=== PATIENT | female | born 1990 | race Hispanic/Latino ===

== ENCOUNTER 2022-03-17 09:41 | Outpatient (CLI) | payer BC, SELFPAY ==
--- NOTE | ~2022-03-17 | US_ITS ---
EXAMINATION: US OB <= 14 weeks fetus DATE: 03/17/2022 10:42 INDICATION: Spotting during first trimester TECHNIQUE: Real-time pelvic ultrasound utilizing both a transvaginal and transabdominal probe was pe rformed. The interpreting radiologist was not present for the study. COMPARISON: None. FINDINGS: The uterus measures 10.9 x 5.3 x 8.5 cm. There is an intrauterine gestational sac. A yolk sac and fe megan pole are identified. The crown rump length measures 2.3 cm, which correlates with an estimated ge stational age of 9 weeks and 0 days. No evident heart motion on cine grayscale or color Doppler imaging consistent with demise. 3.0 x 1.2 x 2.0 cm hypoechoic subchorionic hematoma along the left side of the gestational sac. Normal cervical length of 4.3 cm with trace amount of anechoic flui d measuring 1.5 mm in thickness within the endocervical canal. The right ovary measures 2.7 x 2.0 x 2.3 cm with vascular flow with arterial waveforms on color Doppl er. The left ovary is not visualized. There is no free fluid in the pelvis. IMPRESSION: 1. Intrauterine gestational sac with 2.3 cm pole correspond to gestational age of 9 weeks and 0 days but without discernible heart motion consistent with demise. Reviewed, dictated and finalized at location A. RTISING STRATEGIST IMPRESSION: 1. Intrauterine gestational sac with 2.3 cm pole correspond to gestationa l age of 9 weeks and 0 days but without discernible heart motion consiste nt with demise.
== END 2022-03-17 09:42 | disposition home or self-care (01) ==
LOC: ANHIMG 09:47
PROVIDERS: Visit Provider Obstetrics & Gynecology Gynecology
DX: O26.851 Spotting complicating pregnancy, first trimester (principal); Z3A.09 9 weeks gestation of pregnancy
CPT/HCPCS: 76801

== ENCOUNTER 2022-03-21 18:03 | Observation (INO) | payer BC, SELFPAY ==
[2022-03-21 18:06] VITALS: BP 130/105; PULSE 120; RESP 16; TEMP 36.2; O2SAT 100
[2022-03-21 19:05] LABS: Basophils Percent Auto 0.3 % (0.2-1.2); Eosinophils Absolute Auto 0.1 K/mm3 (0-0.3); Eosinophils Percent Auto 0.8 % (0-4.4); Hematocrit 32.7 % (37.0-47.0); Hemoglobin 10.3 g/dL (12.0-15.0); Immature Granulocyte Absolute 0.06 K/mm3 (0.00-0.031); Immature Granulocyte Percent A 0.5 % (0-0.5); Lymphocytes Absolute Auto 2.37 K/mm3 (0.9-3.2); Lymphocytes Percent Auto 18.9 % (18.3-44.2); Mean Corpuscular HGB Conc 31.5 g/dl (32-36); Mean Corpuscular Hemoglobin 25.9 pg (26-34); Mean Corpuscular Volume 82.2 fl (80-100); Mean Platelet Volume 9.6 fl (7.4-10.4); Monocytes Absolute Auto 0.7 K/mm3 (0.1-0.6); Monocytes Percent Auto 5.3 % (2.6-8.5); Neutrophils Absolute Auto 9.3 K/mm3 (1.3-6.7); Neutrophils Percent Auto 74.2 % (45.5-73.1); Platelet Count Result 325 k/mm3 (150-375); Red Blood Count 3.98 M/mm3 (4.2-5.4); Red Cell Distribution Width 15.1 % (11.5-14.5); White Blood Count 12.6 K/mm3 (4.5-10.0)
[2022-03-21 20:54] VITALS: BP 133/94; BP 149/106; PULSE 102; PULSE 137; PULSE 97
[2022-03-21] MEDS: SODIUM CHLORIDE 0.9% IV 1,000 ML 999 ML IV CONT (21:07)
[2022-03-21] MEDS: fentaNYL CITRATE INJ (*CRX) 100 MCG/2 ML VIAL 50 MCG IV PUSH (21:08)
[2022-03-21 21:28] LABS: INR 1.1; Partial Thromboplastin Time 31.4 SECONDS (22.3-36.8); Prothrombin Time 14.1 Seconds (11.1-14.7)
[2022-03-21 21:34] LABS: Anion Gap 8 mmol/L (8-16); Blood Urea Nitrogen 16 mg/dL (7-17); Calcium 8.9 mg/dL (8.4-10.2); Carbon Dioxide 24 mmol/L (22-30); Chloride 106 mmol/L (98-107); Estimated CRCL calculation 92 ml/min; Estimated Glomerular Filt Rate > 60; Glucose 114 mg/dL (65-110); Potassium 3.8 mmol/L (3.4-5.0); Sodium 138 mmol/L (137-145)
[2022-03-21 21:53] LABS: Influenza A QL RT-PCR Negative (Negative); Influenza B QL RT-PCR Negative (Negative); RSV RNA, RT-PCR Negative (Negative); SARS-CoV-2 RNA PCR Negative
--- NOTE | 2022-03-21 22:36 | ED.FEMALEGU ---
HPI - Female Genitourinary General Chief complaint: Vaginal Bleeding Stated complaint: miscarriage, heavy bleeding Time Seen by Provider: 03/21/22 20:27 History of Present Illness HPI Narrative: Patient is a 31-year-old female who presents ER with vaginal bleeding. Patient was found to be having a miscarriage at [address] Anand. She was prescribed Cytotec. She began having heavy vaginal bleeding and she was instructed to discontinue medication. Patient has continued to try to pass at home. She started having some increased bleeding today and then took Cytotec again. Since 5 PM patient has gone through 5 overnight pads is becoming concerned. She is not on any blood thinners. No loss of consciousness. No dizziness Related Data Allergies Allergy/AdvReac Type Severity Reaction Status Date / Time No Known Allergies Allergy Verified 03/21/22 20:56 Review of Systems Review of Systems: All systems reviewed & are unremarkable except as noted in HPI and below Constitutional: Constitutional: Denies chills and Denies fatigue Cardiovascular: Cardiovascular: Denies chest pain, Denies rapid heart rate and Denies radiating jaw, neck or arm pain Respiratory: Respiratory: Denies cough and Denies dyspnea Gastrointestinal: Gastrointestinal: Reports abdominal pain, Reports nausea and Denies vomiting Genitourinary: Genitourinary: Reports abnormal vaginal bleeding, Denies nocturia, Denies dysuria and Reports pelvic pain Exam Narrative: GENERAL: Well-appearing, well-nourished, and in no acute distress. HEAD: Normocephalic, atraumatic. EYES: PERRL and EOMI. ENT: Mucous membranes moist. CHEST: Clear to auscultation. No respiratory distress. HEART: Regular rate and rhythm. Normal peripheral pulses. ABDOMEN: Soft, nontender, nondistended. Pelvic: Normal external genitalia. Large clot burden within the vagina removed with ring forceps. There appears to be a placental tissue as well as tissue consistent with amniotic sac present. It was removed and the cervix was approximately fingertip and opening with only a small trickle of bright red blood. Repeat exam after Methergine shows reaccumulation of large amount of clot within the vagina which was physically removed. The cervix is now dilated to approximately 3 cm with clot trying to pass EXTREMITIES: Normal range of motion. No edema. SKIN: Warm, dry, no rash. NEURO: Alert and oriented x3. PSYCH: Normal mood and affect. Course Course Emergency Course: Patient aware of diagnosis and treatment plan. Dr. Anand contacted 2 different intervals during the evening. Initially she recommend giving Methergine to help slow bleeding after evacuation of clot. Unfortunately patient continues to bleed and is passing more clot and her cervix is dilated to 3 cm. Patient will be admitted to OB for expectant management. Patient will be kept n.p.o. in case she requires D&C today. Vital Signs Vital signs: Vital Signs Temperature 97.2 F L 03/21/22 18:06 Pulse Rate 120 H 03/21/22 18:06 Respiratory Rate 16 03/21/22 18:06 Blood Pressure 130/105 H 03/21/22 18:06 Pulse Oximetry 100 03/21/22 18:06 Oxygen Delivery Room Air 03/21/22 18:06 Temperature 97.9 F 03/22/22 06:32 Pulse Rate 82 03/22/22 06:32 Respiratory Rate 16 03/22/22 06:32 Blood Pressure 118/79 03/22/22 06:32 Pulse Oximetry 100 03/22/22 00:21 Oxygen Delivery Room Air 03/22/22 06:32 MDM - Female Genitourinary Lab Data 03/21/22 18:59 03/21/22 21:09 Labs: Lab Results 03/21/22 03/21/22 03/21/22 Range/Units 18:59 18:59 18:59 WBC 12.6 H (4.5-10.0) K/mm3 RBC 3.98 L (4.2-5.4) M/mm3 Hgb 10.3 L (12.0-15.0) g/dL Hct 32.7 L (37.0-47.0) % MCV 82.2 (80-100) fl MCH 25.9 L (26-34) pg MCHC 31.5 L (32-36) g/dl RDW 15.1 H (11.5-14.5) % Plt Count 325 (150-375) k/mm3 MPV 9.6 (7.4-10.4) fl Immature Gran % (Auto)
[2022-03-21] MEDS: METHYLERGONOVINE MALEATE 0.2 MG/ML VIAL IM (23:21)
[2022-03-21 23:26] VITALS: BP 121/73
[2022-03-21 23:31] VITALS: BP 115/85
[2022-03-22] VITALS (16 sets, daily range): BP systolic 118–141; BP diastolic 77–86; PULSE 77–105; RESP 11–24; TEMP 36.4–36.6; O2SAT 100; BMI 32.8
[2022-03-22] MEDS: ONDANSETRON INJ 4 MG/2 ML VIAL IV PUSH (00:17)
[2022-03-22] MEDS: MORPHINE SULFATE (*CRX) 4 MG/ML INJ IV PUSH (00:19)
[2022-03-22] MEDS: SODIUM CHLORIDE 0.9% IV 1,000 ML 125 ML IV CONT (02:12)
--- NOTE | 2022-03-22 04:22 | PC.NURSE ---
0255 Pt received from ER by stretcher to room 111. Oriented to room. Admission assessment completed.
--- NOTE | 2022-03-22 07:41 | PM.OBTRLD ---
OB - Triage/Final Diagnosis Visit Information Date of evaluation: 03/22/22 Reason for evaluation: other (Missed Ab with complete ) Comments/Additional reasons for admission: I have assessed the risk for this patient, Sarah Rosales, and determined that she would benefit from observation care. The patient was admitted from the emergency room for observation following heavy bleeding during complete . The patient with a known missed approximately 1 week ago. Patient had taken 1 dose of Cytotec 1 week ago with the onset of bleeding she did not take the 2nd dose. Patient had minimal bleeding throughout the week but yesterday had increased passage of clots and flow so took the 2nd dose of Cytotec. Patient had large clots and was instructed to go to the emergency room. Hemoglobin dropped to 10.3 from 11.6 on her . Patient initially orthostatic blood with a L of fluid orthostatics resolved. Initial exam by the emergency room physician revealed the cervix to be fingertip with tissue in the cervix. After a dose of Methergine and observation for an additional 90minutes the patient dilated to 3cm and bleeding slowed. Due to continued passage of clots it was recommended to observe her overnight in the hospital. After moving to the labor unit the patient had minimal bleeding overnight with [id number] total passed. Patient continues with cramping. Patient has no dizziness or nausea. Plan is to discharge the patient to continue follow-up beta hCG q.week. ER precautions are reviewed. Discussed with the patient that this appears to be a complete at this time. Risk of needing a D&C are very low. Recommended twice daily iron for mild anemia. Evaluation Laboratory results: Laboratory Tests 03/21/22 03/21/22 03/21/22 18:59 18:59 18:59 WBC 12.6 H RBC 3.98 L Hgb 10.3 L Hct 32.7 L MCV 82.2 MCH 25.9 L MCHC 31.5 L RDW 15.1 H Plt Count 325 MPV 9.6 Immature Gran % (Auto) 0.5 Neut % (Auto) 74.2 H Lymph % (Auto) 18.9 Grimes % (Auto) 5.3 Eos % (Auto) 0.8 Baso % (Auto) 0.3 Lymph # (Auto) 2.37 Grimes # (Auto) 0.7 H Eos # (Auto) 0.1 Baso # (Auto) 0.0 Abs Immat Gran (auto) 0.06 H Absolute Neuts (auto) 9.3 H Absolute Nucleated RBC 0.0 Nucleated RBC % 0.0 PT INR APTT Sodium Potassium Chloride Carbon Dioxide Anion Gap BUN Creatinine Estim Creat Clear Calc Estimated GFR Glucose Calcium Beta HCG, Quant 1845.40 Influenza A (RT-PCR) Influenza B (RT-PCR) RSV (RT-PCR) SARS-CoV-2 RNA (RT-PCR) Blood Type O Positive Antibody Screen Negative Screen TNP Baby's Blood Type Not Reportable Baby's ELSA Not Reportable Doses of RhIg Required 0 03/21/22 03/21/22 03/21/22 21:09 21:09 21:09 WBC RBC Hgb Hct MCV MCH MCHC RDW Plt Count MPV Immature Gran % (Auto) Neut % (Auto) Lymph % (Auto) Grimes % (Auto) Eos % (Auto) Baso % (Auto) Lymph # (Auto) Grimes # (Auto) Eos # (Auto) Baso # (Auto) Abs Immat Gran (auto) Absolute Neuts (auto) Absolute Nucleated RBC Nucleated RBC % PT 14.1 INR 1.1 APTT 31.4 Sodium 138 Potassium 3.8 Chloride 106 Carbon Dioxide 24 Anion Gap 8 BUN 16 Creatinine 0.80 Estim Creat Clear Calc 92 Estimated GFR > 60 Glucose 114 H Calcium 8.9 Beta HCG, Quant Influenza A (RT-PCR) Negative Influenza B (RT-PCR) Negative RSV (RT-PCR) Negative SARS-CoV-2 RNA (RT-PCR) Negative Blood Type Antibody Screen Screen Baby's Blood Type Baby's ELSA Doses of RhIg Required Vital signs: Vital Signs - 24 hr 03/21/22 18:06 03/21/22 20:54 03/21/22 20:54 Temperature 97.2 F L Pulse Rate 120 H 97 102 H Respiratory Rate 16 Blood Pressure 130/105 H 149/106 H Pulse Oximetry 100 Oxyg
[2022-03-22] MEDS: IBUPROFEN 600 MG TABLET PO (07:44)
== END 2022-03-22 08:25 | disposition home or self-care (01) ==
LOC: ANHED 20:50 → ANHOBPP 03-22 02:12
PROVIDERS: Emergency Medicine; Admitting Provider Obstetrics & Gynecology Gynecology; Emergency Provider Emergency Medicine; PCP Obstetrics & Gynecology Gynecology; Visit Provider Obstetrics & Gynecology Gynecology
DX: O03.4 Incomplete spontaneous abortion without complication (principal); Z20.822 Contact with and (suspected) exposure to COVID-19
CPT/HCPCS: 36415; 80048; 84702; 85025; 85461; 85610; 85730; 86850; 86900; 86901; 87637; 96361; 96372; 96374; 96375; 99285; A9270; G0378; J2210; J2270; J2405; J3010; J7030